=== PATIENT | male | born 1990 | race African-American/Black ===

== ENCOUNTER 2020-04-20 10:26 | Emergency (ER) | payer SELFPAY ==
[2020-04-20 10:32] VITALS: BP 191/80; PULSE 108; RESP 18; TEMP 36.7; O2SAT 98
--- NOTE | 2020-04-20 10:54 | ED.GENADULT ---
HPI - General Adult General Chief complaint: Urogenital-Male Stated complaint: right testicle is swollen/painful Time Seen by Provider: 04/20/20 10:54 Source: patient and RN notes reviewed Mode of arrival: ambulatory Limitations: no limitations History of Present Illness HPI narrative: 29 year old male who presents to [facility] care with complaints of right testicle pain and swelling since last night. Patient states history of 3 days of hematuria last week lasting from April 08 with little bits of blood noted in his urine with some clots. Patient states on Friday of this week his testicle pain started and last night he states he has noted swelling. Patient states pain has increased did have emesis this morning of bile colored solution. Patient continues to have nausea and vomiting while in clinic and received Zofran with no improvement MD complaint: Right testicle pain and swelling Onset (ago): day(s) (4 days of right testicle discomfort with 1 day stated swelling) Location: genitals Radiation: non-radiation Severity: severe Severity scale (1-10): 10 Quality: aching and sharp Pain Consistency: constant Relieving factors: none Exacerbating factors: movement and other (Palpation) Associated symptoms: other Treatments prior to arrival: other (Tylenol) Related Data Allergies Allergy/AdvReac Type Severity Reaction Status Date / Time No Known Allergies Allergy Unverified 05/05/17 23:48 Review of Systems Review of Systems: Narrative: CONSTITUTIONAL: Denies fever, chills, or sweats. EYES: Denies visual changes, redness, or discharge. ENT: Denies rhinorrhea, congestion, sore throat, or otalgia. CARDIOVASCULAR: Denies chest pain, palpitations, or edema. RESPIRATORY: Denies cough or dyspnea. GASTROINTESTINAL: Denies abdominal pain, nausea, vomiting, or diarrhea. GENITOURINARY: Denies dysuria episode of hematuria April 08 which resolved with pain to right testicle since Friday and reported swelling starting last p.m.Patient has severe pain to right testicle with firmness noted. SKIN: Denies rash or itching. MUSCULOSKELETAL: Denies back pain, joint pain, or myalgia. NEUROLOGIC: Denies headache, numbness, or weakness. PSYCHIATRIC: Denies anxiety or depression. All systems reviewed & are unremarkable except as noted in HPI and below PMFSH Past Medical History Medical History (Updated 04/20/20 @ 11:29 by Asia Frost NP) COVID-19 March 26 released to return to work on April 07 Obesity Surgical History Surgical History (Updated 04/20/20 @ 11:26 by Asia Frost NP) No history of previous surgery Family History Family History (Updated 04/20/20 @ 11:28 by Asia Frost NP) Grandparent Acute myocardial infarction Mother Hypertension Sibling Diabetes mellitus Social History Social History (Updated 04/20/20 @ 11:28 by Asia Frost NP) Smoking status: Never smoker Alcohol intake: never Substance use: never Living arrangements: with family Gender identity (if verbalized by the patient): Male Comments At time of signature, agree with nursing past medical, surgical, social and family history. There is no relevant family history pertinent to the presenting complaint Exam Narrative: Exam Narrative: GENERAL: Well-appearing, well-nourished, and in acute distress. HEAD: Normocephalic, atraumatic. EYES: PERRLA and EOMI. ENT: Nares clear, no rhinorrhea or epistaxis. Mucous membranes moist. NECK: Supple. No lymphadenopathy CHEST: Clear to auscultation. No respiratory distress. SaO2 98% HEART: Regular rate and rhythm. No murmur heard. Normal peripheral pulses. ABDOMEN: Soft, nontender, nondistended, normal active bowel sounds. Patient denies suprapubic pain, positive for right testicle firmness with acute tenderness. EXTREMITIES: Normal range of motion. No edema. SKIN: Warm, dry, no rash. NEURO: No focal deficits. Alert and oriented x3. Course Course Emergency Course: [facility]
[2020-04-20] MEDS: ONDANSETRON HCL ODT 4 MG TABLET PO (11:06)
[2020-04-20 11:38] VITALS: BP 194/78; PULSE 103
== END 2020-04-20 11:45 | disposition short-term general hospital (02) ==
PROVIDERS: Emergency Provider Registered Nurse
DX: N50.811 Right testicular pain (principal); E66.9 Obesity, unspecified; Z68.41 Body mass index [BMI] 40.0-44.9, adult; Z86.19 Personal history of other infectious and parasitic diseases
CPT/HCPCS: 81003; 87086; 87088; 99213; A9270; G0463

== ENCOUNTER 2021-04-19 06:14 | Emergency (ER) | payer SELFPAY ==
--- NOTE | ~2021-04-19 | XR_ITS ---
EXAMINATION: XR chest 2V DATE: 04/19/2021 06:55 INDICATION: Left chest pain. Shortness of breath. TECHNIQUE: Frontal and lateral views of the chest were obtained on 3 radiographs. COMPARISON: Chest 2 views 05/05/2017 FINDINGS: The chest demonstrates clear lungs without pneumonia, pleural effusion, or pneumothorax. Th e heart size is normal. IMPRESSION: 1. No acute cardiopulmonary disease. Reviewed, dictated and finalized at location A.
[2021-04-19 06:16] VITALS: BP 159/69; PULSE 69; RESP 20; TEMP 37; O2SAT 100
[2021-04-19 06:35] VITALS: PULSE 67; RESP 23; O2SAT 100
[2021-04-19 06:37] VITALS: O2SAT 99
--- NOTE | 2021-04-19 06:38 | ECG_ITS ---
Measurements Intervals [place] Rate: 61 P: 45 CT: 159 QRS: -11 QRSD: 108 T: 4 QT: 398 QTc: 401 Interpretive Statements SINUS RHYTHM FREQUENT VENTRICULAR PREMATURE COMPLEXES BORDERLINE T WAVE ABNORMALITY- INFERIOR LEADS BASELINE ARTIFACT- II, III, AVR, AVF, V2-V6 ABNORMAL ECG Electronically Signed On 04-19-2021 8:10:34 CDT by Adiel Augustin D.O.
[2021-04-19] MEDS: ASPIRIN 81 MG CHEWABLE TABLET 324 MG PO (06:45)
[2021-04-19 06:47] LABS: Basophils Percent Auto 0.4 % (0.2-1.2); Eosinophils Absolute Auto 0.1 K/mm3 (0-0.3); Eosinophils Percent Auto 1.6 % (0-4.4); Immature Granulocyte Absolute 0.02 K/mm3 (0.00-0.031); Immature Granulocyte Percent A 0.3 % (0-0.5); Lymphocytes Absolute Auto 3.08 K/mm3 (0.9-3.2); Lymphocytes Percent Auto 40.7 % (18.3-44.2); Mean Corpuscular HGB Conc 31.1 g/dl (32-36); Mean Corpuscular Hemoglobin 25.6 pg (26-34); Mean Corpuscular Volume 82.4 fl (80-100); Mean Platelet Volume 9.2 fl (7.4-10.4); Monocytes Absolute Auto 0.6 K/mm3 (0.1-0.6); Monocytes Percent Auto 8.1 % (2.6-8.5); Neutrophils Absolute Auto 3.7 K/mm3 (1.3-6.7); Neutrophils Percent Auto 48.9 % (45.5-73.1); Platelet Count Result 346 k/mm3 (150-375); Red Blood Count 5.46 M/mm3 (4.6-6.20); White Blood Count 7.6 K/mm3 (4.5-10.0)
[2021-04-19 06:57] LABS: Anion Gap 8 mmol/L (8-16); Blood Urea Nitrogen 15 mg/dL (9-20); Calcium 9.3 mg/dL (8.4-10.2); Carbon Dioxide 28 mmol/L (22-30); Chloride 102 mmol/L (98-107); Estimated CRCL calculation 200 ml/min; Estimated Glomerular Filt Rate > 60; Glucose 96 mg/dL (65-110); Potassium 4.4 mmol/L (3.4-5.0); Sodium 138 mmol/L (137-145)
[2021-04-19 07:00] LABS: Prothrombin Time 12.8 Seconds (11.1-14.7)
[2021-04-19 07:01] VITALS: PULSE 64; RESP 18; O2SAT 99
[2021-04-19 07:01] LABS: Partial Thromboplastin Time 31.6 SECONDS (22.3-36.8)
[2021-04-19 07:02] VITALS: BP 139/76; PULSE 61; RESP 18; O2SAT 100
[2021-04-19 07:08] LABS: Troponin I < 0.012 ng/mL (0.000-0.034)
--- NOTE | 2021-04-19 07:36 | ED.CHESTPAIN ---
HPI - Chest Pain General Chief Complaint: Chest Pain Stated Complaint: Chest pain Time Seen by Provider: 04/19/21 07:03 Source: patient History of Present Illness HPI narrative: Patient presents with chest palpitations. Is a noted intermittent symptoms over the past year has not been evaluated for it. He likes essential, more frequently so he wanted to come in for evaluation. Reports he has these episodes that are brief lasting a few seconds feels like someone squeezing his heart but then resolves. He thinks he has a little bit of lightheadedness and some shortness of breath associated with it. He denies any nausea or vomiting or diaphoresis. Denies any recent fevers, cough, congestion. When these episodes pass he has no complaints he denies residual chest pain, shortness of breath. Related Data Home Medications Medication Instructions Recorded Confirmed No Home Medications 04/19/21 04/19/21 Allergies Allergy/AdvReac Type Severity Reaction Status Date / Time No Known Allergies Allergy Verified 04/19/21 06:36 Review of Systems Review of Systems: CONSTITUTIONAL: Denies fever, chills, or sweats. EYES: Denies visual changes, redness, or discharge. ENT: Denies rhinorrhea, congestion, sore throat, or otalgia. CARDIOVASCULAR: Denies palpitations, or edema. RESPIRATORY: Denies cough. GASTROINTESTINAL: Denies abdominal pain, nausea, vomiting, or diarrhea. GENITOURINARY: Denies dysuria or hematuria. SKIN: Denies rash or itching. MUSCULOSKELETAL: Denies back pain, joint pain, or myalgia. NEUROLOGIC: Denies headache, numbness, dizziness, or weakness. PSYCHIATRIC: Denies anxiety or depression. All systems reviewed & are unremarkable except as noted in HPI and below PMFSH Past Medical History Medical History COVID-March 26 released to return to work on April 07 Obesity Surgical History Surgical History No history of previous surgery Family History Family History Grandparent Acute myocardial infarction Mother Hypertension Sibling Diabetes mellitus Social History Social History Smoking status: Never smoker Alcohol intake: never Substance use: never Gender identity (if verbalized by the patient): Male Exam Narrative: GENERAL: Well-appearing, well-nourished, and in no acute distress. HEAD: Normocephalic, atraumatic. EYES: PERRLA and EOMI. ENT: Nares clear, no rhinorrhea or epistaxis. Mucous membranes moist. NECK: Supple. No masses. No JVD CHEST: Clear to auscultation. No respiratory distress. No wheezes rales or rhonchi HEART: Regular rate and rhythm. No murmur heard. Normal peripheral pulses. ABDOMEN: Soft, nontender, nondistended, normal active bowel sounds. EXTREMITIES: Normal range of motion. No edema. SKIN: Warm, dry, no rash. NEURO: No focal deficits. Alert and oriented x3. PSYCH: Normal mood and affect. Course Reevaluation(s) Reevaluation #1: Results and plan reviewed with patient. Patient comfortable outpatient plan. Date: 04/19/21 Time: 07:38 Vital Signs Vital signs: Vital Signs Temperature 37.0 C 04/19/21 06:16 Pulse Rate 69 04/19/21 06:16 Respiratory Rate 20 04/19/21 06:16 Blood Pressure 159/69 H 04/19/21 06:16 Pulse Oximetry 100 04/19/21 06:16 Temperature 37.0 C 04/19/21 06:16 Pulse Rate 61 04/19/21 07:55 Respiratory Rate 18 04/19/21 07:55 Blood Pressure 149/71 H 04/19/21 07:55 Pulse Oximetry 100 04/19/21 07:55 MDM - Chest Pain MDM Narrative Medical decision making narrative: H&P as above, vs with hypertension otherwise clinically unremarkable, pt looks clinically well, exam reassuring, labs clinically unremarkable, img clinically unremarkable, additional labs/img considered, symptomatic relief available a
[2021-04-19 07:55] VITALS: BP 149/71; PULSE 61; RESP 18; O2SAT 100
== END 2021-04-19 07:55 | disposition home or self-care (01) ==
PROVIDERS: Emergency Medicine; Emergency Provider Emergency Medicine
DX: I49.3 Ventricular premature depolarization (principal); Z86.16 Personal history of COVID-19; E66.9 Obesity, unspecified; Z68.43 Body mass index [BMI] 50.0-59.9, adult; R94.31 Abnormal electrocardiogram [ECG] [EKG]
CPT/HCPCS: 36415; 71046; 80048; 84484; 85025; 85610; 85730; 93005; 99284; A9270